=== PATIENT | male | born 1955 | race Hispanic/Latino ===

== ENCOUNTER → 2018-04-19 | Outpatient (CLI) | payer OTHER ==
[~2018-04-19] MED LIST: ASPI-1197 PO; ATOR40TA71 PO; BUSP10TA3 PO; CLOP75TA32 PO; DIPH25TA20 PO; EPINEPHRINE INJ; GLIP10TA9 PO; HYDR-4060 PO; INSU100V12 SQ; METF-446 PO; METO-391 PO; NITR0.4T50 SL; PRED20TA3 PO; REGADENOSON 0.4 MG/5 ML PF SYG IVP SCH; SERT100T12 PO; TRAZ-187 PO
== END | disposition home or self-care (01) ==
LOC: SHCH 09:03
PROVIDERS: ATTEND Internal Medicine Cardiovascular Disease
DX: I10 Essential (primary) hypertension (principal); E11.40 Type 2 diabetes mellitus with diabetic neuropathy, unspecified; K21.9 Gastro-esophageal reflux disease without esophagitis; Z72.89 Other problems related to lifestyle; I25.10 Atherosclerotic heart disease of native coronary artery without angina pectoris
CPT/HCPCS: 78452; 93017; 96374; A9500 ×2; J2785

== ENCOUNTER → 2018-04-26 | Outpatient (CLI) | payer OTHER ==
[~2018-04-26] MED LIST changes: -REGADENOSON 0.4 MG/5 ML PF SYG IVP SCH
== END | disposition home or self-care (01) ==
LOC: SHCH 08:06
PROVIDERS: ATTEND Internal Medicine Cardiovascular Disease
DX: R01.1 Cardiac murmur, unspecified (principal)
CPT/HCPCS: 93306

== ENCOUNTER → 2018-05-21 | Outpatient (CLI) | payer OTHER | END | disposition home or self-care (01) | LOC: SHCH 09:29 | PROVIDERS: ATTEND Internal Medicine Cardiovascular Disease | DX: I65.23 Occlusion and stenosis of bilateral carotid arteries (principal); I73.9 Peripheral vascular disease, unspecified | CPT/HCPCS: 93880; 93925 ==

== ENCOUNTER 2018-06-19 08:17 | Day surgery (SDC) | payer OTHER ==
[2018-06-17 09:23] LABS: BASOPHILS % (AUTO) 0.7 % (0.0-5.0); EOSINOPHILS % (AUTO) 2.1 % (0.0-8.0); HEMATOCRIT 48.8 % (42-54); LYMPHOCYTES % (AUTO) 22.3 % (21.0-51.0); MEAN CORPUSCULAR HEMOGLOBIN 31.4 pg (27.0-33.0); MEAN CORPUSCULAR HGB CONC 33.6 g/dL (32.0-36.0); MEAN CORPUSCULAR VOLUME 93.6 fL (79-99); NEUTROPHILS % (AUTO) 65.9 % (40.0-77.0); PLATELET COUNT (AUTO) 181 K/uL (130-400); RED BLOOD CELL COUNT(AUTO) 5.21 MIL/uL (4.50-6.20); RED CELL DISTRIBUTION WIDTH 13.1 % (11.0-15.5); WHITE BLOOD COUNT (AUTO) 7.6 K/uL (4.8-10.8)
[2018-06-17 09:26] VITALS: BP 124/84
[2018-06-17 09:36] LABS: CREATININE 0.9 mg/dL (0.5-1.5); POTASSIUM 4.6 mmol/L (3.5-5.1)
[2018-06-17 09:37] LABS: APPEARANCE,URINE Clear (CLEAR); BILIRUBIN,URINE Negative (NEGATIVE); COLOR,URINE Yellow (YELLOW); GLUCOSE, URINE (UA) >=1000 mg/dL (NEGATIVE); KETONES,URINE Negative (NEGATIVE); LEUKOCYTE ESTERASE ,URINE Negative (NEGATIVE); NITRATE,URINE Negative (NEGATIVE); OCCULT BLOOD,URINE Negative (NEGATIVE); PROTEIN,URINE 300 (NEGATIVE)
[2018-06-17 09:45] LABS: BACTERIA,URINE Rare /HPF (None Seen); SQUAMOUS EPITHELIAL CELL,UR Few /HPF (0-2); WBC,URINE 0-1 /HPF (0-1)
[2018-06-17 09:47] LABS: INR 0.95 (0.85-1.15); PARTIAL THROMBOPLASTIN TIME 26.1 SEC (26.3-35.5)
[2018-06-19] VITALS (9 sets, daily range): BP systolic 96–126; BP diastolic 65–99
[~2018-06-19] VITALS: Ht 162.6 cm; Wt 84.0 kg
[~2018-06-19 08:17] MED LIST changes: -ATOR40TA71 PO; -BUSP10TA3 PO; +CYCL10 PO; -DIPH25TA20 PO; +DONE10TA43 PO; -EPINEPHRINE INJ; +GABA-531 PO; -GLIP10TA9 PO; -HYDR-4060 PO; +INSU100I21 SQ; -INSU100V12 SQ; +LOSA50TA25 PO; -PRED20TA3 PO; +RANI150T7 PO; +ROSU40TA20 PO; -TRAZ-187 PO
[2018-06-19] MEDS ORDERED: INSULIN HUMULIN R 100 UNIT/ML 3ML ONE (09:37)
[2018-06-19] MEDS ORDERED: SODIUM CHLORIDE 0.9% 1000ML 1,000 ML IV ONE (10:54)
[2018-06-19] MEDS ORDERED: INSU100I3 SQ (11:05)
[2018-06-19] MEDS ORDERED: INSULIN HUMULIN R 100 UNIT/ML 3ML SQ SCH ×3 (12:00→16:30)
[2018-06-19] MEDS ORDERED: IOHEXOL 350 MG/ML 100ML INFUS..BTL IV ONE ×2 (14:41→15:16)
[2018-06-19] MEDS ORDERED: LIDOCAINE HCL 2% 20ML ONE (14:41)
[2018-06-19] MEDS ORDERED: SODIUM BICARB 50MEQ 50ML VIAL ONE (14:41)
[2018-06-19] MEDS ORDERED: NITROGLYCERIN 5 MG/ML 10 ML VIAL IV ONE (14:41)
[2018-06-19] MEDS ORDERED: IOHEXOL-350 50ML VIAL IV ONE (14:41)
[2018-06-19] MEDS ORDERED: MEPERIDINE-PF 25 MG/ML SYG ONE (14:56)
[2018-06-19] MEDS ORDERED: MIDAZOLAM HCL 1 MG/ML 2ML VIAL ONE (14:56)
[2018-06-19] MEDS ORDERED: HEPARIN SODIUM 1000UNIT/ML 10ML VIAL ONE (15:16)
[2018-06-19] MEDS ORDERED: SODIUM CHLORIDE 0.9% 1000ML 1,000 ML IV SCH (15:32)
[2018-06-19] MEDS ORDERED: GLUCAGON 1MG KIT 1 MG ML IM PRN (15:45)
[2018-06-19] MEDS ORDERED: DEXTROSE 50%-WATER 50 ML DISP.SYRIN IV PRN (15:45)
== END 2018-06-19 19:50 | disposition home or self-care (01) ==
LOC: DAH 08:17
PROVIDERS: ATTEND Internal Medicine Cardiovascular Disease
DX: I25.798 Atherosclerosis of other coronary artery bypass graft(s) with other forms of angina pectoris (principal); Z79.899 Other long term (current) drug therapy; Z68.30 Body mass index [BMI] 30.0-30.9, adult; Z79.84 Long term (current) use of oral hypoglycemic drugs; I10 Essential (primary) hypertension; E78.5 Hyperlipidemia, unspecified; I73.9 Peripheral vascular disease, unspecified; E11.51 Type 2 diabetes mellitus with diabetic peripheral angiopathy without gangrene; K21.9 Gastro-esophageal reflux disease without esophagitis; E66.9 Obesity, unspecified; Z95.5 Presence of coronary angioplasty implant and graft; R01.1 Cardiac murmur, unspecified
CPT/HCPCS: 36415; 71045; 80048; 81001; 82948 ×4; 85025; 85610; 85730; 93005; 93459; A4606; C1760 ×2; C1894; J1644; J1815; J2175; J2250; J3490 ×3; J7030; Q9965 ×2; Q9967 ×3; 99156; 99157

== ENCOUNTER → 2018-09-02 | Outpatient (CLI) | payer OTHER ==
[~2018-09-02] MED LIST changes: +INSU100I3 SQ; +IOHEXOL-350 50ML VIAL IV ONE; +IOHEXOL-350 75 ML VIAL IV ONE; -LOSA50TA25 PO; +LOSA50TA64 PO
== END | disposition home or self-care (01) ==
LOC: RAH 07:10
PROVIDERS: ATTEND Internal Medicine Cardiovascular Disease
DX: I71.4 Abdominal aortic aneurysm, without rupture (principal); I77.1 Stricture of artery; N32.89 Other specified disorders of bladder; M47.815 Spondylosis without myelopathy or radiculopathy, thoracolumbar region; J84.10 Pulmonary fibrosis, unspecified; I70.90 Unspecified atherosclerosis
CPT/HCPCS: 75635; Q9967 ×2

== ENCOUNTER 2018-12-28 17:40 | Emergency (ER) | payer OTHER ==
[~2018-12-28 17:40] MED LIST changes: +ACET-66 PO; +BUSP10TA3 PO; -CYCL10 PO; -DONE10TA43 PO; -INSU100I21 SQ; +INSU100V12 SQ; -IOHEXOL-350 50ML VIAL IV ONE; -IOHEXOL-350 75 ML VIAL IV ONE; -LOSA50TA64 PO; +MELA1TAB28 PO; -METF-446 PO; +OMEP40CA37 PO; +PIOG30TA70 PO; -SERT100T12 PO
[2018-12-28 18:11] LABS: BASOPHILS % (AUTO) 1.1 % (0.0-5.0); EOSINOPHILS % (AUTO) 0.7 % (0.0-8.0); HEMATOCRIT 38.3 % (42-54); LYMPHOCYTES % (AUTO) 8.3 % (21.0-51.0); MEAN CORPUSCULAR HEMOGLOBIN 30.5 pg (27.0-33.0); MEAN CORPUSCULAR HGB CONC 32.9 g/dL (32.0-36.0); MEAN CORPUSCULAR VOLUME 92.9 fL (79-99); MONOCYTES % (AUTO) 7.9 % (3.0-13.0); PLATELET COUNT (AUTO) 219 K/uL (130-400); RED BLOOD CELL COUNT(AUTO) 4.12 MIL/uL (4.50-6.20); RED CELL DISTRIBUTION WIDTH 13.8 % (11.0-15.5); WHITE BLOOD COUNT (AUTO) 11.8 K/uL (4.8-10.8)
[2018-12-28 18:24] LABS: CREATININE 0.8 mg/dL (0.5-1.5); POTASSIUM 3.7 mmol/L (3.5-5.1)
[2018-12-28 18:29] LABS: ALBUMIN 3.1 g/dL (3.5-5.0); TOTAL PROTEIN, SERUM 6.8 g/dL (6.0-8.3)
[2018-12-28] MEDS ORDERED: BISACODYL 10 MG SUPP.RECT RC ONE (18:54)
[2018-12-28] MEDS ORDERED: MAGNESIUM CITRATE 296 ML SOLUTION ONE (18:54)
[2018-12-28 21:03] LABS: APPEARANCE,URINE Cloudy (CLEAR); BILIRUBIN,URINE Negative (NEGATIVE); COLOR,URINE Yellow (YELLOW); GLUCOSE, URINE (UA) Negative (NEGATIVE); KETONES,URINE Trace mg/dL (NEGATIVE); LEUKOCYTE ESTERASE ,URINE Small (NEGATIVE); NITRATE,URINE Negative (NEGATIVE); OCCULT BLOOD,URINE Small (NEGATIVE); PROTEIN,URINE 300 mg/dL (NEGATIVE)
[2018-12-28 21:15] LABS: BACTERIA,URINE Few /HPF (None Seen); CALCIUM OXALATE CRYSTALS,UR Few /LPF (None Seen); SQUAMOUS EPITHELIAL CELL,UR None Seen /HPF (0-2)
[2018-12-28 21:16] LABS: RBC,URINE 0-1 /HPF (0-1)
== END 2018-12-28 23:00 | disposition home or self-care (01) ==
LOC: EDH 17:40
DX: K59.00 Constipation, unspecified (principal); E10.9 Type 1 diabetes mellitus without complications; I25.810 Atherosclerosis of coronary artery bypass graft(s) without angina pectoris; I25.2 Old myocardial infarction; E03.9 Hypothyroidism, unspecified; I10 Essential (primary) hypertension; J44.9 Chronic obstructive pulmonary disease, unspecified; F32.9 Major depressive disorder, single episode, unspecified; F41.9 Anxiety disorder, unspecified; Z90.49 Acquired absence of other specified parts of digestive tract; Z87.891 Personal history of nicotine dependence
CPT/HCPCS: 36415; 74018; 80053; 81001; 85025

== ENCOUNTER 2019-01-27 17:55 | Emergency (ER) | payer OTHER ==
[~2019-01-27 17:55] MED LIST changes: -ROSU40TA20 PO; +ROSU40TA21 PO
[2019-01-27 18:32] LABS: BASOPHILS % (AUTO) 0.7 % (0.0-5.0); EOSINOPHILS % (AUTO) 3.2 % (0.0-8.0); HEMATOCRIT 43.5 % (42-54); LYMPHOCYTES % (AUTO) 21.4 % (21.0-51.0); MEAN CORPUSCULAR HEMOGLOBIN 31.8 pg (27.0-33.0); MEAN CORPUSCULAR VOLUME 93.6 fL (79-99); MONOCYTES % (AUTO) 12.9 % (3.0-13.0); NEUTROPHILS % (AUTO) 61.8 % (40.0-77.0); NUCLEATED RED BLOOD CELLS 0.1 % (0.0-0.19); PLATELET COUNT (AUTO) 188 K/uL (130-400); RED BLOOD CELL COUNT(AUTO) 4.65 MIL/uL (4.50-6.20); RED CELL DISTRIBUTION WIDTH 13.9 % (11.0-15.5)
[2019-01-27 18:42] LABS: APPEARANCE,URINE Clear (CLEAR); BILIRUBIN,URINE Negative (NEGATIVE); COLOR,URINE Yellow (YELLOW); GLUCOSE, URINE (UA) 250 mg/dL (NEGATIVE); KETONES,URINE Negative (NEGATIVE); LEUKOCYTE ESTERASE ,URINE Negative (NEGATIVE); NITRATE,URINE Negative (NEGATIVE); OCCULT BLOOD,URINE Negative (NEGATIVE); PH,URINE 5.5 (5.0-8.0); PROTEIN,URINE POS 2+ mg/dL (NEGATIVE)
[2019-01-27 18:45] LABS: POTASSIUM 4.2 mmol/L (3.5-5.1)
[2019-01-27 18:49] LABS: ALBUMIN 3.4 g/dL (3.5-5.0); BILIRUBIN,TOTAL 0.6 mg/dL (0.2-1.0); INR 0.93 (0.85-1.15); PROTHROMBIN TIME 9.8 SEC (9.6-11.6); TOTAL PROTEIN, SERUM 7.1 g/dL (6.0-8.3)
[2019-01-27 19:34] LABS: BACTERIA,URINE Rare /HPF (None Seen); RBC,URINE 0-1 /HPF (0-1); WBC,URINE 0-1 /HPF (0-1)
[2019-01-27 19:35] LABS: SQUAMOUS EPITHELIAL CELL,UR Few /HPF (0-2); TRANSITIONAL EPI CELLS,URINE Rare /HPF (None Seen)
[2019-01-27] MEDS ORDERED: ACETAMINOPHEN EXTRA STRENGTH 500 MG TABLET ONE (21:33)
[2019-01-27] MEDS ORDERED: HYOSCYAMINE SULFATE 0.125 MG TAB.SUBL SL ONE (22:23)
== END 2019-01-27 23:01 | disposition home or self-care (01) ==
LOC: EDH 17:55
DX: I73.9 Peripheral vascular disease, unspecified (principal); R10.30 Lower abdominal pain, unspecified; R30.0 Dysuria; R51 Headache; F41.9 Anxiety disorder, unspecified; I25.810 Atherosclerosis of coronary artery bypass graft(s) without angina pectoris; J44.9 Chronic obstructive pulmonary disease, unspecified; F32.9 Major depressive disorder, single episode, unspecified; E11.9 Type 2 diabetes mellitus without complications; I10 Essential (primary) hypertension; E03.9 Hypothyroidism, unspecified; I25.2 Old myocardial infarction; F43.10 Post-traumatic stress disorder, unspecified; Z90.49 Acquired absence of other specified parts of digestive tract; Z87.891 Personal history of nicotine dependence
CPT/HCPCS: 36415; 71045; 74176; 80053; 81001; 82150; 82550; 83690; 84484; 85025; 85610; 85730; 87040; 87077; 87186; 87804; 93005; 93926; 93971

== ENCOUNTER 2019-04-08 08:43 | Observation (INO) | payer OTHER ==
[2019-04-03 10:33] VITALS: BP 110/69
[2019-04-03 10:37] LABS: BASOPHILS % (AUTO) 0.7 % (0.0-5.0); EOSINOPHILS % (AUTO) 1.6 % (0.0-8.0); HEMATOCRIT 47.4 % (42-54); LYMPHOCYTES % (AUTO) 14.3 % (21.0-51.0); MEAN CORPUSCULAR HEMOGLOBIN 31.1 pg (27.0-33.0); MEAN CORPUSCULAR HGB CONC 33.9 g/dL (32.0-36.0); MEAN CORPUSCULAR VOLUME 91.9 fL (79-99); NEUTROPHILS % (AUTO) 75.4 % (40.0-77.0); PLATELET COUNT (AUTO) 201 K/uL (130-400); RED BLOOD CELL COUNT(AUTO) 5.15 MIL/uL (4.50-6.20); RED CELL DISTRIBUTION WIDTH 13.8 % (11.0-15.5); WHITE BLOOD COUNT (AUTO) 9.5 K/uL (4.8-10.8)
[2019-04-03 10:39] LABS: APPEARANCE,URINE Clear (CLEAR); BILIRUBIN,URINE Negative (NEGATIVE); COLOR,URINE Yellow (YELLOW); GLUCOSE, URINE (UA) 500 mg/dL (NEGATIVE); KETONES,URINE Negative (NEGATIVE); LEUKOCYTE ESTERASE ,URINE Trace (NEGATIVE); NITRATE,URINE Negative (NEGATIVE); OCCULT BLOOD,URINE Negative (NEGATIVE); PH,URINE 5.5 (5.0-8.0); PROTEIN,URINE 300 mg/dL (NEGATIVE)
[2019-04-03 10:50] LABS: CREATININE 0.9 mg/dL (0.5-1.5); POTASSIUM 4.6 mmol/L (3.5-5.1)
[2019-04-03 10:54] LABS: BACTERIA,URINE Rare /HPF (None Seen); RBC,URINE 0-1 /HPF (0-1); SQUAMOUS EPITHELIAL CELL,UR Rare /HPF (0-2)
[2019-04-03 10:55] LABS: INR 1.01 (0.85-1.15); PARTIAL THROMBOPLASTIN TIME 26.5 SEC (26.3-35.5); PROTHROMBIN TIME 10.6 SEC (9.6-11.6)
[2019-04-08] VITALS (9 sets, daily range): BP systolic 117–156; BP diastolic 75–98
[~2019-04-08] VITALS: Ht 167.6 cm; Wt 82.5 kg
[~2019-04-08 08:43] MED LIST changes: -ACET-66 PO; +DOCU100T PO; -INSU100V12 SQ; -METO-391 PO; +METO-409 PO; -OMEP40CA37 PO; -PIOG30TA70 PO; +PIOG45TA64 PO; -RANI150T7 PO; +SERT100T12 PO; +VITA1CAP85 PO
[2019-04-08] MEDS ORDERED: SODIUM CHLORIDE 0.9% 1000ML 1,000 ML IV ONE (09:24)
[2019-04-08] MEDS ORDERED: HEPARIN SODIUM 1000UNIT/ML 10ML VIAL ONE ×2 (15:02→17:04)
[2019-04-08] MEDS ORDERED: NITROGLYCERIN 5 MG/ML 10 ML VIAL IV ONE (15:02)
[2019-04-08] MEDS ORDERED: LIDOCAINE HCL 2% 20ML ONE (15:02)
[2019-04-08] MEDS ORDERED: IODIXANOL 320 MG/ML 100 ML VIAL ONE ×2 (15:02→18:24)
[2019-04-08] MEDS ORDERED: MIDAZOLAM HCL 1 MG/ML 2ML VIAL ONE ×2 (15:35→18:03)
[2019-04-08] MEDS ORDERED: FENTANYL CITRATE PF 50 MCG/1 ML 2ML VIAL ONE (15:35)
[2019-04-08] MEDS ORDERED: CLOPIDOGREL BISULFATE 300 MG TAB ONE (16:15)
[2019-04-08] MEDS ORDERED: SODIUM CHLORIDE 0.9% 1000ML 1,000 ML IV SCH (19:16)
[2019-04-08] MEDS ORDERED: GLUCAGON 1MG KIT 1 MG ML IM PRN (19:30)
[2019-04-08] MEDS ORDERED: INSULIN ASPART 10 UNIT SQ SCH (19:30)
[2019-04-08] MEDS ORDERED: NITROGLYCERIN 0.4 MG SL TAB SL SCH (19:30)
[2019-04-08] MEDS ORDERED: ACETAMINOPHEN-CODEINE 300/30MG TAB PO PRN (19:30)
[2019-04-08] MEDS ORDERED: DEXTROSE 50%-WATER 50 ML DISP.SYRIN IV PRN (19:30)
--- NOTE | 2019-04-08 19:35 | NUR ---
PATIENT ARRIVED ON FLOOR. BILATERAL PEDAL PULSES WEAK PALPABLE. LEFT GROIN SOFT, NON TENDER. NO HEMATOMA. BEDREST OVER AT 2330 PATIENT NOT AMBULATED. STATES HE USES A WALKER AT HOME. WILL WALK PATIENT IN AM.
[2019-04-08] MEDS ORDERED: PHARMACY COMMUNICATION MISC SCH (20:00)
[2019-04-08] MEDS: INSULIN HUMULIN R 100 UNIT/ML 3ML SQ SCH (21:00)
[2019-04-08] MEDS: BUSPIRONE HCL 5 MG TABLET PO SCH (21:33)
[2019-04-09 04:11] VITALS: BP 139/91
[2019-04-09 04:31] LABS: HEMATOCRIT 44.6 % (42-54); MEAN CORPUSCULAR HEMOGLOBIN 31.3 pg (27.0-33.0); MEAN CORPUSCULAR HGB CONC 33.7 g/dL (32.0-36.0); PLATELET COUNT (AUTO) 162 K/uL (130-400); RED CELL DISTRIBUTION WIDTH 13.6 % (11.0-15.5); WHITE BLOOD COUNT (AUTO) 8.6 K/uL (4.8-10.8)
[2019-04-09 04:49] LABS: POTASSIUM 4.1 mmol/L (3.5-5.1)
[2019-04-09] MEDS: INSULIN HUMULIN R 100 UNIT/ML 3ML SQ SCH ×2 (06:03→11:28)
[2019-04-09 07:41] VITALS: BP 118/79
[2019-04-09] MEDS: SERTRALINE HCL 50 MG TABLET PO SCH ×2 (08:43→08:54)
[2019-04-09] MEDS: GABAPENTIN 300 MG CAPSULE PO SCH ×2 (08:43→08:53)
[2019-04-09] MEDS: BUSPIRONE HCL 5 MG TABLET PO SCH ×3 (08:43→14:00)
[2019-04-09] MEDS ORDERED: ROSUVASTATIN CALCIUM 20 MG PO SCH (09:00)
[2019-04-09] MEDS ORDERED: PIOGLITAZONE HCL 45 MG TAB PO SCH (09:00)
[2019-04-09] MEDS ORDERED: DOCUSATE SODIUM 100 MG CAP PO SCH (09:00)
[2019-04-09] MEDS ORDERED: ASPIRIN 81MG TAB.CHEW PO SCH (09:00)
[2019-04-09] MEDS ORDERED: Metoprolol Succinate 50 MG PO SCH (09:00)
[2019-04-09] MEDS ORDERED: CLOPIDOGREL BISULFATE 75 MG TAB PO SCH (09:00)
[2019-04-09] MEDS ORDERED: VITAMIN B COMPLEX 1 CAPSULE PO SCH (09:00)
[2019-04-09] MEDS ORDERED: ONDANSETRON HCL 4 MG/2 ML VIAL IV PRN (09:15)
[2019-04-09] MEDS ORDERED: HYDRALAZINE HCL 20 MG/ML VIAL IV PRN (09:15)
[2019-04-09] MEDS ORDERED: FAMOTIDINE/PF 20 MG/2 ML VIAL IV SCH (10:03)
[2019-04-09] MEDS ORDERED: INSU100I3 SQ (10:14)
[2019-04-09 11:37] VITALS: BP 141/63
[2019-04-09] MEDS ORDERED: INSULIN LISPRO 100 UNIT/ML 3ML SQ SCH (17:00)
[2019-04-09] MEDS ORDERED: Melatonin/Pyridoxine HCl (B6) (Melatonin 3 mg Tablet) PO PRN (21:00)
[2019-05-15] MEDS ORDERED: METF-446 PO (13:57)
[2019-05-15] MEDS ORDERED: RANI150T7 PO (16:12)
[2019-05-15] MEDS ORDERED: MELA3CAP2 PO (16:12)
[2019-05-15] MEDS ORDERED: INSU100V12 SQ ×2 (16:12)
== END 2019-04-09 15:00 | disposition home or self-care (01) ==
LOC: DAH 08:43 → DAHIP 08:44 → 2AH 19:57
PROVIDERS: ADMIT Internal Medicine; ATTEND Internal Medicine
DX: E11.51 Type 2 diabetes mellitus with diabetic peripheral angiopathy without gangrene (principal); I25.10 Atherosclerotic heart disease of native coronary artery without angina pectoris; I10 Essential (primary) hypertension; E78.5 Hyperlipidemia, unspecified; Z95.1 Presence of aortocoronary bypass graft; Z79.82 Long term (current) use of aspirin; Z79.4 Long term (current) use of insulin; Z79.899 Other long term (current) drug therapy
CPT/HCPCS: 36415 ×3; 37225; 71045; 75716; 80048 ×2; 81001; 82948 ×4; 85025; 85027; 85347 ×2; 85610; 85730; 93005; A4215; A4216; A4221; A4222; A4223 ×3; A4606; C1725 ×2; C1760; C1769 ×6; C1884 ×2; C1893; C1894 ×2; C2623 ×3; G0378 ×20; J1644 ×4; J2250 ×2; J3010; J3490 ×2; J7030 ×2; Q9967 ×2; 99156; 99157

== ENCOUNTER 2019-05-20 05:55 | Day surgery (SDC) | payer OTHER ==
[2019-05-15 12:56] LABS: BASOPHILS % (AUTO) 0.6 % (0.0-5.0); EOSINOPHILS % (AUTO) 1.9 % (0.0-8.0); HEMATOCRIT 46.1 % (42-54); LYMPHOCYTES % (AUTO) 18.2 % (21.0-51.0); MEAN CORPUSCULAR HEMOGLOBIN 32.1 pg (27.0-33.0); MEAN CORPUSCULAR HGB CONC 34.4 g/dL (32.0-36.0); MEAN CORPUSCULAR VOLUME 93.4 fL (79-99); MONOCYTES % (AUTO) 8.5 % (3.0-13.0); NEUTROPHILS % (AUTO) 70.8 % (40.0-77.0); NUCLEATED RED BLOOD CELLS 0.1 % (0.0-0.19); PLATELET COUNT (AUTO) 202 K/uL (130-400); RED BLOOD CELL COUNT(AUTO) 4.93 MIL/uL (4.50-6.20); RED CELL DISTRIBUTION WIDTH 13.2 % (11.0-15.5); WHITE BLOOD COUNT (AUTO) 8.1 K/uL (4.8-10.8)
[2019-05-15 13:01] LABS: POTASSIUM 4.5 mmol/L (3.5-5.1)
[2019-05-15 13:35] LABS: APPEARANCE,URINE Clear (CLEAR); BILIRUBIN,URINE Negative (NEGATIVE); COLOR,URINE Dark Yellow (YELLOW); GLUCOSE, URINE (UA) >=1000 mg/dL (NEGATIVE); KETONES,URINE Negative (NEGATIVE); LEUKOCYTE ESTERASE ,URINE Trace (NEGATIVE); NITRATE,URINE Negative (NEGATIVE); OCCULT BLOOD,URINE Negative (NEGATIVE); PROTEIN,URINE >=1000 mg/dL (NEGATIVE)
[2019-05-15 13:38] VITALS: BP 140/84
[2019-05-15 13:45] LABS: INR 0.98 (0.85-1.15); PARTIAL THROMBOPLASTIN TIME 25.6 SEC (26.3-35.5); PROTHROMBIN TIME 10.3 SEC (9.6-11.6)
[2019-05-15 14:05] LABS: BACTERIA,URINE Rare /HPF (None Seen); RBC,URINE 0-1 /HPF (0-1); SQUAMOUS EPITHELIAL CELL,UR Rare /HPF (0-2); WBC,URINE 0-1 /HPF (0-1)
[2019-05-20] VITALS (11 sets, daily range): BP systolic 94–127; BP diastolic 65–97
[~2019-05-20] VITALS: Ht 165.1 cm; Wt 84.7 kg
[~2019-05-20 05:55] MED LIST changes: -BUSP10TA3 PO; -INSU100I3 SQ; +INSU100V12 SQ; -MELA1TAB28 PO; +MELA3CAP2 PO; +METF-446 PO; +RANI150T7 PO; +SODIUM CHLORIDE 0.9% 500ML 500 ML IV SCH; -VITA1CAP85 PO
[2019-05-20] MEDS ORDERED: SODIUM CHLORIDE 0.9% 1000ML 1,000 ML IV ONE (06:06)
[2019-05-20] MEDS ORDERED: HEPARIN SODIUM 1000UNIT/ML 10ML VIAL ONE (07:08)
[2019-05-20] MEDS ORDERED: NITROGLYCERIN 5 MG/ML 10 ML VIAL IV ONE (07:08)
[2019-05-20] MEDS ORDERED: LIDOCAINE HCL 2% 20ML ONE (07:08)
[2019-05-20] MEDS ORDERED: IODIXANOL 320 MG/ML 100 ML VIAL ONE (07:08)
[2019-05-20] MEDS ORDERED: MIDAZOLAM HCL 1 MG/ML 2ML VIAL ONE (07:48)
[2019-05-20] MEDS ORDERED: FENTANYL CITRATE PF 50 MCG/1 ML 2ML VIAL ONE (07:48)
[2019-05-20] MEDS ORDERED: GLUCAGON 1MG KIT 1 MG ML IM PRN (10:30)
[2019-05-20] MEDS ORDERED: DEXTROSE 50%-WATER 50 ML DISP.SYRIN IV PRN (10:30)
[2019-05-20] MEDS ORDERED: ACETAMINOPHEN 325 MG TAB PO ONE (10:30)
[2019-05-20] MEDS ORDERED: INSULIN HUMULIN R 100 UNIT/ML 3ML SQ SCH (11:30)
--- NOTE | 2019-05-20 13:55 | NUR ---
Pt discharged home, tolerating fluids/solids well, voiding well, ambulating well. Pt denies any severe pain, nausea, or dizziness. Right femoral artery cath site remains soft, non-tender, dressing dry, clean, and intact. Pt and brother educated on routine and emergency care of site. Pt and brother report no further questions at this time.
== END 2019-05-20 13:55 | disposition home or self-care (01) ==
LOC: DAH 05:55
PROVIDERS: ATTEND Internal Medicine Cardiovascular Disease
DX: I70.211 Atherosclerosis of native arteries of extremities with intermittent claudication, right leg (principal); I25.10 Atherosclerotic heart disease of native coronary artery without angina pectoris; I10 Essential (primary) hypertension; K21.9 Gastro-esophageal reflux disease without esophagitis; F41.9 Anxiety disorder, unspecified; F32.9 Major depressive disorder, single episode, unspecified; E11.40 Type 2 diabetes mellitus with diabetic neuropathy, unspecified; E66.9 Obesity, unspecified; E78.5 Hyperlipidemia, unspecified; Z79.84 Long term (current) use of oral hypoglycemic drugs; Z79.899 Other long term (current) drug therapy; Z98.62 Peripheral vascular angioplasty status; Z98.890 Other specified postprocedural states; Z79.82 Long term (current) use of aspirin; Z79.4 Long term (current) use of insulin; Z68.31 Body mass index [BMI] 31.0-31.9, adult; Z87.891 Personal history of nicotine dependence; Z79.01 Long term (current) use of anticoagulants; Z72.89 Other problems related to lifestyle; Z82.49 Family history of ischemic heart disease and other diseases of the circulatory system; Z83.3 Family history of diabetes mellitus
CPT/HCPCS: 36415; 37224; 37229; 71045; 75710; 80048; 81001; 82948 ×2; 85025; 85610; 85730; 93005; A4215; A4216; A4221; A4222; A4223 ×3; A4606; A4663; C1760; C1769 ×2; C1894 ×3; C2623; J1644 ×2; J1815; J2250; J3010; J3490 ×2; J7030; Q9967; 99156; 99157

== ENCOUNTER 2019-06-11 16:37 | Emergency (ER) | payer OTHER ==
[~2019-06-11 16:37] MED LIST changes: -SODIUM CHLORIDE 0.9% 500ML 500 ML IV SCH
[2019-06-11] MEDS ORDERED: MORPHINE SULFATE 4 MG/1ML SYG ONE (17:17)
[2019-06-11] MEDS ORDERED: ONDANSETRON HCL 4 MG/2 ML VIAL ONE (17:17)
[2019-06-11 17:33] LABS: BASOPHILS % (AUTO) 1.1 % (0.0-5.0); EOSINOPHILS % (AUTO) 1.6 % (0.0-8.0); HEMATOCRIT 45.3 % (42-54); LYMPHOCYTES % (AUTO) 19.6 % (21.0-51.0); MEAN CORPUSCULAR HEMOGLOBIN 31.3 pg (27.0-33.0); MEAN CORPUSCULAR HGB CONC 33.6 g/dL (32.0-36.0); MEAN CORPUSCULAR VOLUME 93.4 fL (79-99); MONOCYTES % (AUTO) 11.1 % (3.0-13.0); NEUTROPHILS % (AUTO) 66.6 % (40.0-77.0); PLATELET COUNT (AUTO) 196 K/uL (130-400); RED BLOOD CELL COUNT(AUTO) 4.84 MIL/uL (4.50-6.20); RED CELL DISTRIBUTION WIDTH 13.5 % (11.0-15.5); WHITE BLOOD COUNT (AUTO) 9.2 K/uL (4.8-10.8)
[2019-06-11 17:45] LABS: POTASSIUM 4.2 mmol/L (3.5-5.1)
[2019-06-11 17:50] LABS: ALBUMIN 3.3 g/dL (3.5-5.0); BILIRUBIN,TOTAL 0.7 mg/dL (0.2-1.0); TOTAL PROTEIN, SERUM 6.9 g/dL (6.0-8.3)
[2019-06-11] MEDS ORDERED: IOHEXOL-350 75 ML VIAL IV ONE (17:51)
[2019-06-11] MEDS ORDERED: IOHEXOL-350 50ML VIAL IV ONE (17:58)
== END 2019-06-11 19:22 | disposition home or self-care (01) ==
LOC: EDH 16:37
DX: R07.89 Other chest pain (principal); F41.9 Anxiety disorder, unspecified; I25.10 Atherosclerotic heart disease of native coronary artery without angina pectoris; E11.9 Type 2 diabetes mellitus without complications; J98.4 Other disorders of lung; I10 Essential (primary) hypertension; E03.9 Hypothyroidism, unspecified; I25.2 Old myocardial infarction; J44.9 Chronic obstructive pulmonary disease, unspecified; Z87.891 Personal history of nicotine dependence; Z90.49 Acquired absence of other specified parts of digestive tract; Z95.1 Presence of aortocoronary bypass graft
CPT/HCPCS: 36415; 74177; 80053; 85025; 96374; 96375; 99285; J2270; J2405; Q9967 ×2

== ENCOUNTER 2022-06-02 05:51 | Day surgery (SDC) | payer OTHER ==
[2022-05-30 10:52] LABS: EOSINOPHILS % (AUTO) 2.4 % (0.0-8.0); HEMATOCRIT 48.6 % (42-54); LYMPHOCYTES % (AUTO) 17.8 % (21.0-51.0); MEAN CORPUSCULAR HEMOGLOBIN 30.8 pg (27.0-33.0); MEAN CORPUSCULAR HGB CONC 33.1 g/dL (32.0-36.0); MEAN CORPUSCULAR VOLUME 92.9 fL (79-99); MONOCYTES % (AUTO) 10.3 % (3.0-13.0); NEUTROPHILS % (AUTO) 68.1 % (40.0-77.0); PLATELET COUNT (AUTO) 182 K/uL (130-400); RED BLOOD CELL COUNT(AUTO) 5.23 MIL/uL (4.50-6.20); RED CELL DISTRIBUTION WIDTH 12.9 % (11.0-15.5)
[2022-05-30 11:01] LABS: INR 1.05 (0.85-1.15); PROTHROMBIN TIME 11.4 SEC (9.6-11.6)
[2022-05-30 11:02] LABS: PARTIAL THROMBOPLASTIN TIME 31.7 SEC (26.3-35.5)
[2022-05-30 11:08] LABS: CREATININE 1.2 mg/dL (0.5-1.5); POTASSIUM 4.7 mmol/L (3.5-5.1)
[2022-05-30 11:30] LABS: B-TYPE NATRIURETIC PEPTIDE 113 pg/mL (0-100)
[2022-05-30 11:44] LABS: APPEARANCE,URINE CLEAR (CLEAR); BILIRUBIN,URINE NEGATIVE (NEGATIVE); COLOR,URINE LIGHT-YELLOW (YELLOW); GLUCOSE, URINE (UA) >=1000 mg/dL (NEGATIVE); KETONES,URINE NEGATIVE (NEGATIVE); LEUKOCYTE ESTERASE ,URINE 25 Leu/uL (NEGATIVE); NITRATE,URINE 2+ (NEGATIVE); OCCULT BLOOD,URINE NEGATIVE (NEGATIVE); PH,URINE 5.5 (5.0-8.0); PROTEIN,URINE 100 mg/dL (NEGATIVE); UROBILINOGEN,URINE 0.2 mg/dL (0.2-1.0)
[2022-05-30 11:54] LABS: BACTERIA,URINE RARE /HPF (None Seen); MUCUS,URINE RARE LPF (None Seen); SQUAMOUS EPITHELIAL CELL,UR RARE /HPF (0-2)
[2022-06-01 09:33] VITALS: BP 147/88
[2022-06-02] VITALS (9 sets, daily range): BP systolic 98–125; BP diastolic 62–78
[~2022-06-02] VITALS: Ht 167.6 cm; Wt 85.2 kg
[~2022-06-02 05:51] MED LIST changes: +CEFAZOLIN SODIUM 1 GM VIAL IVPB SCH; -CLOP75TA32 PO; -DOCU100T PO; +ESOM40CA54 PO; -GABA-531 PO; -INSU100V12 SQ; +INSU300I SQ; +ISOS30TA92 PO; +LACT10SO62 PO; +MELA1TAB28 PO; -MELA3CAP2 PO; +METO-391 PO; -METO-409 PO; -NITR0.4T50 SL; -RANI150T7 PO; +RIVA2.5T PO; +SERT-440 PO; -SERT100T12 PO; +TAMS-1 PO; +VITA1CAP PO
[2022-06-02] MEDS ORDERED: 0.9%NACL 1000ML 1,000 ML IV ONE (06:21)
[2022-06-02] MEDS ORDERED: HEPARIN 10,000 UNIT/10ML (1,000 UNIT/ML) VIAL ONE (07:37)
[2022-06-02] MEDS ORDERED: NITROGLYCERIN 50MG VIAL ONE (07:37)
[2022-06-02] MEDS ORDERED: IOHEXOL 350 MG/ML 100ML INFUS..BTL IV ONE (07:37)
[2022-06-02] MEDS ORDERED: IOHEXOL-350 50ML VIAL IV ONE (07:38)
[2022-06-02] MEDS ORDERED: MIDAZOLAM HCL 1 MG/ML 2ML VIAL ONE (07:38)
[2022-06-02] MEDS ORDERED: FENTANYL CITRATE PF 50 MCG/1 ML 2ML VIAL ONE (07:38)
[2022-06-02] MEDS ORDERED: LIDOCAINE HCL 400MG/20ML VIAL ONE (07:38)
[2022-06-02] MEDS ORDERED: GLUCAGON 1MG KIT 1 MG ML IM PRN (09:30)
[2022-06-02] MEDS ORDERED: DEXTROSE 50%-WATER 50 ML DISP.SYRIN IV PRN (09:30)
[2022-06-02] MEDS ORDERED: 0.9%NACL 1000ML 1,000 ML IV SCH (09:30)
== END 2022-06-02 12:55 | disposition home or self-care (01) ==
LOC: DAH 05:51
PROVIDERS: ATTEND Internal Medicine Cardiovascular Disease
DX: I25.119 Atherosclerotic heart disease of native coronary artery with unspecified angina pectoris (principal); I25.82 Chronic total occlusion of coronary artery; I25.729 Atherosclerosis of autologous artery coronary artery bypass graft(s) with unspecified angina pectoris; I48.0 Paroxysmal atrial fibrillation; E11.51 Type 2 diabetes mellitus with diabetic peripheral angiopathy without gangrene; I10 Essential (primary) hypertension; E66.9 Obesity, unspecified; K21.9 Gastro-esophageal reflux disease without esophagitis; E78.5 Hyperlipidemia, unspecified; Z95.5 Presence of coronary angioplasty implant and graft; Z98.890 Other specified postprocedural states; Z79.84 Long term (current) use of oral hypoglycemic drugs; Z79.82 Long term (current) use of aspirin; Z79.01 Long term (current) use of anticoagulants; Z95.1 Presence of aortocoronary bypass graft; Z68.30 Body mass index [BMI] 30.0-30.9, adult
CPT/HCPCS: 80048; 83880; 85025; 85610; 85730; 87077; 87088; 87186; 81001; 36415; 71045; 93005; 93455; 82948 ×2; C1894 ×2; C1760; Q9965; J3010; J0690; J3490; J7030; J2250; J1644; Q9967; A4215; A4222; A4221; A4663; A4216; A4606; A4223 ×3; 99156; 99157

== ENCOUNTER → 2023-01-05 | Outpatient (CLI) | payer OTHER ==
[~2023-01-05] MED LIST changes: -CEFAZOLIN SODIUM 1 GM VIAL IVPB SCH; +IOHEXOL 350 MG/ML 100ML INFUS..BTL IV ONE; +IOHEXOL-350 50ML VIAL IV ONE; -ISOS30TA92 PO; -LACT10SO62 PO; +LACT10SO95 PO
== END | disposition home or self-care (01) ==
LOC: RAH 08:09 → EDSTATUS 09:00
PROVIDERS: ATTEND Internal Medicine Cardiovascular Disease
DX: I71.43 Infrarenal abdominal aortic aneurysm, without rupture (principal); I73.9 Peripheral vascular disease, unspecified; M47.815 Spondylosis without myelopathy or radiculopathy, thoracolumbar region; K76.0 Fatty (change of) liver, not elsewhere classified; N28.1 Cyst of kidney, acquired; N28.89 Other specified disorders of kidney and ureter; K57.30 Diverticulosis of large intestine without perforation or abscess without bleeding; I70.0 Atherosclerosis of aorta; I70.1 Atherosclerosis of renal artery; N32.89 Other specified disorders of bladder
CPT/HCPCS: 75635; Q9967 ×2

== ENCOUNTER → 2023-05-02 | Outpatient (CLI) | payer OTHER ==
[~2023-05-02] VITALS: Ht 170.2 cm; Wt 79.8 kg
[~2023-05-02] MED LIST changes: +BUSP10TA3 PO; +CLOP-31 PO; +DONE5TAB33 PO; +FAMO20TA8 PO; +GABA600T10 PO; +IBUP-2784 PO; -IOHEXOL 350 MG/ML 100ML INFUS..BTL IV ONE; -IOHEXOL-350 50ML VIAL IV ONE; +Isosorbide Mono 60MG Sr Tab PO; +LACT10SO5 PO; -LACT10SO95 PO; +LOSA25TA41 PO; +MECL-302 PO; -MELA1TAB28 PO; +METO50TA9 PO; +NITR0.4T50 SL; +PANT40TA54 PO; +SEMA0.258 SQ; -VITA1CAP PO
[2023-05-02 12:30] LABS: BASOPHILS # (AUTO) 0.05 K/uL (0.00-0.20); BASOPHILS % (AUTO) 0.6 % (0.0-5.0); EOSINOPHILS # (AUTO) 0.14 K/uL (0.00-0.70); EOSINOPHILS % (AUTO) 1.6 % (0.0-8.0); HEMATOCRIT 45.7 % (42-54); IMMATURE GRANULOCYTE ABSOLUTE 0.04 K/uL (0-1); LYMPHOCYTES # (AUTO) 1.7 K/uL (1.0-4.8); MEAN CORPUSCULAR HEMOGLOBIN 30.5 pg (27.0-33.0); MEAN CORPUSCULAR HGB CONC 32.4 g/dL (32.0-36.0); MEAN CORPUSCULAR VOLUME 94.2 fL (79-99); MONOCYTES # (AUTO) 0.7 K/uL (0.1-1.0); NEUTROPHILS # (AUTO) 6.3 K/uL (1.8-7.7); NEUTROPHILS % (AUTO) 70.4 % (40.0-77.0); PLATELET COUNT (AUTO) 189 K/uL (130-400); RED BLOOD CELL COUNT(AUTO) 4.85 MIL/uL (4.50-6.20); RED CELL DISTRIBUTION WIDTH 13.2 % (11.0-15.5)
[2023-05-02 12:40] LABS: INR 0.95 (0.85-1.15); PROTHROMBIN TIME 11.1 SEC (9.6-11.6)
[2023-05-02 12:41] LABS: CREATININE 1.4 mg/dL (0.5-1.5); PARTIAL THROMBOPLASTIN TIME 30.1 SEC (26.3-35.5)
[2023-05-02 16:39] VITALS: BP 77/49; PULSE 97; RESP 18
== END ==
LOC: DAH 10:00 → EDSTATUS 12:00
PROVIDERS: ATTEND Internal Medicine Cardiovascular Disease
DX: Z01.818 Encounter for other preprocedural examination (principal); I73.9 Peripheral vascular disease, unspecified; E11.9 Type 2 diabetes mellitus without complications; K21.9 Gastro-esophageal reflux disease without esophagitis; F41.8 Other specified anxiety disorders; Z83.3 Family history of diabetes mellitus; Z80.9 Family history of malignant neoplasm, unspecified; Z82.49 Family history of ischemic heart disease and other diseases of the circulatory system; Z72.89 Other problems related to lifestyle; Z79.84 Long term (current) use of oral hypoglycemic drugs; Z79.1 Long term (current) use of non-steroidal anti-inflammatories (NSAID); Z79.4 Long term (current) use of insulin; Z79.899 Other long term (current) drug therapy; Z87.891 Personal history of nicotine dependence
CPT/HCPCS: 36415; 71045; 80048; 82948; 85025; 85610; 85730; 93005

== ENCOUNTER 2023-10-03 09:19 | Emergency (ER) | payer OTHER ==
[~2023-10-03] VITALS: Ht 167.6 cm; Wt 81.6 kg
[~2023-10-03 09:19] MED LIST changes: -ASPI-1197 PO; -FAMO20TA8 PO; +MECL-160 PO; -MECL-302 PO; -METO50TA9 PO; -PIOG45TA64 PO
[2023-10-03 09:42] VITALS: BP 170/70; PULSE 110; RESP 18; O2SAT 97
[2023-10-03 09:49] LABS: APPEARANCE,URINE CLEAR (CLEAR); BILIRUBIN,URINE NEGATIVE (NEGATIVE); COLOR,URINE LIGHT-YELLOW (YELLOW); GLUCOSE, URINE (UA) >=1000 mg/dL (NEGATIVE); KETONES,URINE NEGATIVE (NEGATIVE); LEUKOCYTE ESTERASE ,URINE 75 Leu/uL (NEGATIVE); NITRATE,URINE NEGATIVE (NEGATIVE); OCCULT BLOOD,URINE NEGATIVE (NEGATIVE); PH,URINE 5.5 (5.0-8.0); PROTEIN,URINE 100 mg/dL (NEGATIVE); UROBILINOGEN,URINE 0.2 mg/dL (0.2-1.0)
[2023-10-03 09:51] LABS: BACTERIA,URINE RARE /HPF (None Seen); MUCUS,URINE RARE LPF (None Seen); SQUAMOUS EPITHELIAL CELL,UR RARE /HPF (0-2)
[2023-10-03 10:02] LABS: BASOPHILS # (AUTO) 0.05 K/uL (0.00-0.20); BASOPHILS % (AUTO) 0.6 % (0.0-5.0); EOSINOPHILS # (AUTO) 0.17 K/uL (0.00-0.70); HEMATOCRIT 43.8 % (42-54); IMMATURE GRANULOCYTE ABSOLUTE 0.03 K/uL (0-1); LYMPHOCYTES # (AUTO) 1.5 K/uL (1.0-4.8); LYMPHOCYTES % (AUTO) 17.6 % (21.0-51.0); MEAN CORPUSCULAR HEMOGLOBIN 31.2 pg (27.0-33.0); MEAN CORPUSCULAR HGB CONC 34.9 g/dL (32.0-36.0); MEAN CORPUSCULAR VOLUME 89.2 fL (79-99); MONOCYTES # (AUTO) 0.9 K/uL (0.1-1.0); MONOCYTES % (AUTO) 10.7 % (3.0-13.0); NEUTROPHILS % (AUTO) 68.8 % (40.0-77.0); PLATELET COUNT (AUTO) 183 K/uL (130-400); RED BLOOD CELL COUNT(AUTO) 4.91 MIL/uL (4.50-6.20); RED CELL DISTRIBUTION WIDTH 13.2 % (11.0-15.5); WHITE BLOOD COUNT (AUTO) 8.7 K/uL (4.8-10.8)
[2023-10-03 10:14] LABS: CREATININE 1.1 mg/dL (0.5-1.3); POTASSIUM 4.1 mmol/L (3.5-5.1)
[2023-10-03 10:18] LABS: ALBUMIN 3.4 g/dL (3.5-5.0); BILIRUBIN,TOTAL 1.4 mg/dL (0.2-1.0); TOTAL PROTEIN, SERUM 7.3 g/dL (6.0-8.3)
[2023-10-03] MEDS ORDERED: CEPH500B PO (11:52)
[2023-10-03] MEDS: KETOROLAC 30MG VIAL (30MG/ML) IM STA (11:54)
[2023-10-03] MEDS: KETOROLAC 30MG VIAL (30MG/ML) IM ONE (11:54)
== END 2023-10-03 12:18 | disposition home or self-care (01) ==
LOC: EDH 09:19
DX: S39.012A Strain of muscle, fascia and tendon of lower back, initial encounter (principal); N39.0 Urinary tract infection, site not specified; E11.9 Type 2 diabetes mellitus without complications; E78.00 Pure hypercholesterolemia, unspecified; I10 Essential (primary) hypertension; Z79.01 Long term (current) use of anticoagulants; Z79.02 Long term (current) use of antithrombotics/antiplatelets; Z79.84 Long term (current) use of oral hypoglycemic drugs; Z79.899 Other long term (current) drug therapy; Z90.49 Acquired absence of other specified parts of digestive tract; X58.XXXA Exposure to other specified factors, initial encounter; Y93.89 Activity, other specified; Y92.89 Other specified places as the place of occurrence of the external cause; Y99.8 Other external cause status
CPT/HCPCS: 99285; 74176; 80053; 85025; 87077; 87088; 87186; 81001 ×2; 36415; 96372; J1885

== ENCOUNTER → 2024-09-09 | Outpatient (CLI) | payer OTHER ==
[~2024-09-09] MED LIST changes: +CEPH500B PO; -ESOM40CA54 PO; +ESOM40CA66 PO; +GABA-1405 PO; -GABA600T10 PO; +LACT-441 PO; -LACT10SO5 PO; -MECL-160 PO; +MECL-302 PO; -ROSU40TA21 PO; +ROSU40TA88 PO
--- NOTE | 2024-09-09 13:30 | NUR ---
MBSS COMPLETED (OUTPATIENT). No aspiration/no penetrations. Recommend regular solids, thin liquids and pills whole with liquids as tolerated. Compensatory strategies: 1. sit upright during oral intake 2. small bites/sips 3. slow oral intake 4. extra dry swallows [employer]HE[employer] DENTIST reviewed results and recommendations with patient. MAXILLOFACIAL PROSTHETICS DENTIST educated patient on risks and consequences of aspiration. Speech therapy not warranted at this time. All questions answered. Addendum: 09/09/[address] EMILIE AGUILERA Amended: Links added.
--- NOTE | 2024-09-09 15:19 | HMCIMG ---
MODIFIED BARIUM SWALLOW W CINE REASON: DYSPHAGIA, ORAL PHASE. COMPARISON: None TECHNIQUE: Modified barium swallow study was performed with referring speech therapist. FINDINGS: Please see procedure report by referring speech therapist. IMPRESSION: Modified barium swallow study.
== END | disposition home or self-care (01) ==
LOC: RAH 12:52
PROVIDERS: ATTEND Internal Medicine Gastroenterology
DX: R13.11 Dysphagia, oral phase (principal); R63.30 Feeding difficulties, unspecified
CPT/HCPCS: 74230; 92611

== ENCOUNTER → 2024-09-29 | Outpatient (CLI) | payer OTHER | END | disposition home or self-care (01) | LOC: SHCH 10:54 | PROVIDERS: ATTEND Internal Medicine Cardiovascular Disease | DX: I08.3 Combined rheumatic disorders of mitral, aortic and tricuspid valves (principal); I25.10 Atherosclerotic heart disease of native coronary artery without angina pectoris | CPT/HCPCS: 93306 ==

== ENCOUNTER 2024-10-22 06:51 | Day surgery (SDC) | payer OTHER ==
[2024-10-22] VITALS (11 sets, daily range): BP systolic 118–147; BP diastolic 70–85; PULSE 60–71; RESP 14–18; TEMP 96.7–98.2
[~2024-10-22] VITALS: Ht 167.6 cm; Wt 79.4 kg
[~2024-10-22 06:51] MED LIST changes: -TAMS-1 PO; +TAMS-55 PO
[2024-10-22] MEDS ORDERED: METF-446 PO (08:10)
[2024-10-22] MEDS ORDERED: METO100T14 PO (08:10)
[2024-10-22] MEDS ORDERED: ASPI-1197 PO (08:11)
[2024-10-22] MEDS ORDERED: CILO100T3 PO (08:12)
[2024-10-22] MEDS: 0.9%NACL 1000ML 1,000 ML IV ONE (08:16)
[2024-10-22] MEDS ORDERED: proPOFol 10 MG/ML 20ML VIAL IV ONE (09:18)
[2024-10-22] MEDS ORDERED: LIDOCAINE HCL 1% 20 ML VIAL ONE (09:18)
== END 2024-10-22 11:12 | disposition home or self-care (01) ==
LOC: ENDO 06:51 → DAH 06:51 → ENDO 11:12
PROVIDERS: ATTEND Internal Medicine Gastroenterology
DX: R13.10 Dysphagia, unspecified (principal); R93.3 Abnormal findings on diagnostic imaging of other parts of digestive tract; R12 Heartburn; I10 Essential (primary) hypertension; I25.10 Atherosclerotic heart disease of native coronary artery without angina pectoris; E11.9 Type 2 diabetes mellitus without complications; E78.5 Hyperlipidemia, unspecified; F41.9 Anxiety disorder, unspecified; F32.A Depression, unspecified; M19.90 Unspecified osteoarthritis, unspecified site; K59.04 Chronic idiopathic constipation; Z86.0100 Personal history of colon polyps, unspecified; Z79.84 Long term (current) use of oral hypoglycemic drugs; Z79.82 Long term (current) use of aspirin; Z79.01 Long term (current) use of anticoagulants; Z79.899 Other long term (current) drug therapy
CPT/HCPCS: 43239; 43248; J7030; J2704; A4620; A4215 ×2; A4223; A4222; A4221; A4663; A4606; J3490